=== PATIENT | male | born 1970 | race Caucasian/White ===

== ENCOUNTER 2016-08-23 10:02 | Day surgery (SDC) | payer OTHER ==
[~2016-08-23] VITALS: Ht 180.3 cm; Wt 106.1 kg
[~2016-08-23 10:02] MED LIST: BACLOFEN10 MG PO; ERGOCALCIF50000 UNIT PO; GABAPENTIN600 MG PO; LABETALOL HCL100 MG PO; LO-DOSE ASPIRIN81 M2 PO; MAGNESIUM400 M1 PO; MYFORTIC360 MG PO; PROGRAF1 MG PO; TRAMADOL HCL50 MG PO
== END 2016-08-23 12:15 | disposition home or self-care (01) ==
LOC: PAIN 10:02 → SDC 10:45 → PAIN 12:15
PROC: 3E0S33Z Introduction of Anti-inflammatory into Epidural Space, Percutaneous Approach (ICD-10-PCS; principal; 2016-08-23)
DX: M47.27 Other spondylosis with radiculopathy, lumbosacral region (principal); F41.9 Anxiety disorder, unspecified; F17.200 Nicotine dependence, unspecified, uncomplicated; M47.816 Spondylosis without myelopathy or radiculopathy, lumbar region; M48.06 Spinal stenosis, lumbar region; M79.1 Myalgia; Z94.0 Kidney transplant status; Z94.4 Liver transplant status; B19.20 Unspecified viral hepatitis C without hepatic coma; F10.21 Alcohol dependence, in remission; Z86.73 Personal history of transient ischemic attack (TIA), and cerebral infarction without residual deficits; Z79.82 Long term (current) use of aspirin
CPT/HCPCS: J1100; J2250; J3010

== ENCOUNTER 2016-09-27 07:10 | Day surgery (SDC) | payer OTHER ==
[~2016-09-27] VITALS: Ht 177.8 cm; Wt 106.1 kg
== END 2016-09-27 08:59 | disposition home or self-care (01) ==
LOC: PAIN 07:10 → SDC 07:30 → PAIN 08:59
DX: M47.26 Other spondylosis with radiculopathy, lumbar region (principal); M48.06 Spinal stenosis, lumbar region; F41.9 Anxiety disorder, unspecified; F17.200 Nicotine dependence, unspecified, uncomplicated; Z79.82 Long term (current) use of aspirin; Z94.0 Kidney transplant status; Z94.4 Liver transplant status; Z79.899 Other long term (current) drug therapy; Z92.25 Personal history of immunosuppression therapy; F10.21 Alcohol dependence, in remission; Z86.73 Personal history of transient ischemic attack (TIA), and cerebral infarction without residual deficits; B19.20 Unspecified viral hepatitis C without hepatic coma
CPT/HCPCS: J1030; J2250; J3010; S0020